=== PATIENT | female | born 1950 | race Caucasian/White ===

== ENCOUNTER 2019-05-01 05:20 | Outpatient (RCR) | payer MEDICARE, SELFPAY | END 2019-05-30 00:01 | LOC: LAB 05:20 | DX: E11.9 Type 2 diabetes mellitus without complications (principal) | CPT/HCPCS: 82044 ==

== ENCOUNTER 2019-06-12 14:32 | Outpatient (RCR) | payer MEDICARE, SELFPAY ==
[2019-06-12 15:05] LABS: Alanine Aminotransferase 11 U/L (0-33); Albumin Level 3.7 g/dL (3.5-5.2); Aspartate Amino Transferase 12 U/L (0-32); Blood Urea Nitrogen 13 mg/dL (8-23); NT Pro B Type Natriuretic Pept 255 pg/mL (0-125); Sodium 140 mmol/L (136-145); Total Bilirubin 0.2 mg/dL (0.15-1.2)
[2019-06-12 16:21] LABS: Potassium 4.4 mmol/L (3.5-5.1)
[2019-06-12 16:22] LABS: Anion Gap 14.4 (5-19); Carbon Dioxide 30 mmol/L (22-29); Chloride 100 mmol/L (98-107); Glucose 151 mg/dL (74-106)
[2019-06-12 16:23] LABS: Alkaline Phosphatase 107 IU/L (35-105); Globulin 1.9 g/dL (1.3-4.6); Total Protein 5.6 g/dL (6.6-8.7)
== END 2019-06-30 23:59 | disposition home or self-care (01) ==
LOC: LAB 14:32
PROVIDERS: Visit Provider Dermatology
DX: G40.909 Epilepsy, unspecified, not intractable, without status epilepticus (principal); R07.9 Chest pain, unspecified
CPT/HCPCS: 80053; 83735; 83880